=== PATIENT | female | born 1995 | race Two or more races ===

== ENCOUNTER 2022-04-17 17:27 | Inpatient (IN) | payer MEDICAID, OTHER ==
[~2022-04-17] VITALS: Ht 170.2 cm; Wt 118.5 kg
[2022-04-17 18:30] LABS: Albumin 3.8 g/dL (3.4-5.0); BUN/Creatinine Ratio 13.6; Calcium 8.8 mg/dL (8.5-10.1)
[2022-04-17 18:33] LABS: Bilirubin, Total 0.4 mg/dL (0.2-1.0); Total Protein 7.5 g/dL (6.4-8.2)
[2022-04-17 18:34] LABS: Basophils # (auto) 0.2 10 ^3/uL (0-0.2); Basophils % (auto) 2.7 % (0.0-2.0); Eosinophils # (auto) 0.1 10 ^3/uL (0-0.8); Eosinophils % (auto) 1.5 % (0.0-7.0); Hematocrit 44.7 % (36.0-46.0); Hemoglobin 14.8 g/dL (12.2-16.2); Lymphocytes # (auto) 1.3 10 ^3/uL (0.4-5.4); Lymphocytes % (auto) 14.2 % (10.0-50.0); Mean Corpuscular Hemoglobin 28.3 pg (28.0-32.0); Mean Corpuscular Hgb Conc. 33.2 g/dL (32.0-36.0); Mean Corpuscular Volume 85.3 fL (80.0-100.0); Monocytes # (auto) 0.4 10 ^3/uL (0-1.3); Monocytes % (auto) 4.8 % (0.0-12.0); Neutrophils # (auto) 6.9 10 ^3/uL (1.6-8.6); Neutrophils % (auto) 76.8 % (37.0-80.0); Red Blood Cells 5.24 10^6/uL (4.0-5.20); Red Cell Distribution Width 13.5 % (11.8-14.3)
[2022-04-17] MEDS ORDERED: SODIUM CHLORIDE 0.9% 1,000 ML IV ONE ×2 (20:15)
[2022-04-17 21:03] LABS: Urine Bacteria FEW /hpf (None Seen); Urine Blood Negative /uL (Negative); Urine Mucus FEW (None Seen); Urine Specific Gravity 1.015 (1.001-1.035); Urine WBC 3 /hpf (0 - 5)
[2022-04-17 21:15] LABS: Amphetamine Screen, Urine NEGATIVE (NEGATIVE); Barbiturate Scree,Urine NEGATIVE (NEGATIVE); Benzodiazephine Screen, Urine NEGATIVE (NEGATIVE); Cannabinoid Screen, Urine POSITIVE (NEGATIVE); Cocaine Screen, Urine NEGATIVE (NEGATIVE)
[2022-04-17 21:23] LABS: Opiate Scree,Urine NEGATIVE (NEGATIVE); Phencyclidine Screen, Urine NEGATIVE (NEGATIVE)
[2022-04-17] MEDS ORDERED: cefTRIAXone 1GM/50ML D5W 50 ML IV ONE (22:15)
[2022-04-17] MEDS ORDERED: NITROGLYCERIN 0.4 MG SL TAB SL PRN (23:00)
[2022-04-17] MEDS ORDERED: MORPHINE SULFATE INJ 2 MG/ml SYRG IV PRN (23:00)
[2022-04-17] MEDS ORDERED: ACETAMINOPHEN 325 MG TAB PO PRN (23:00)
[2022-04-17] MEDS ORDERED: ONDANSETRON HCL 4 MG/2 ML VIAL IV PRN (23:00)
[2022-04-17] MEDS ORDERED: TEMAZEPAM 15 MG CAP PO PRN (23:00)
[2022-04-18 06:23] LABS: BUN/Creatinine Ratio 10.2; Calcium 8.3 mg/dL (8.5-10.1); Potassium 3.9 mmol/L (3.5-5.1)
[2022-04-18] MEDS ORDERED: cefTRIAXone 1GM/50ML D5W 50 ML IV SCH (09:00)
[2022-04-18] MEDS ORDERED: PANTOPRAZOLE 40 MG TAB PO SCH (10:00)
[2022-04-18] MEDS ORDERED: ENOXAPARIN SOD 100 MG/1 ML SYRINGE SC ONE (12:00)
[2022-04-18] MEDS ORDERED: METOPROLOL SUCCINATE XL 50 MG TAB PO ONE (12:00)
[2022-04-18] MEDS ORDERED: ALBUAER3 IN (21:48)
[2022-04-18 21:54] VITALS: BP 128/69
[2022-04-19 05:08] VITALS: BP 132/75
[2022-04-19 08:00] VITALS: BP 123/72
[2022-04-19 09:00] VITALS: BP 123/72
[2022-04-19] MEDS ORDERED: METO25TA93 PO (09:35)
[2022-04-19] MEDS ORDERED: MAGN241.4 PO (09:35)
[2022-04-19] MEDS ORDERED: MAGNESIUM OXIDE 400 MG TAB PO SCH (10:00)
[2022-04-19] MEDS ORDERED: METOPROLOL SUCCINATE XL 50 MG TAB PO SCH ×2 (10:00)
[2022-04-19 12:48] VITALS: BP 101/66
[2022-04-19 13:00] VITALS: BP 101/60
== END 2022-04-19 13:45 | disposition home or self-care (01) | DRG 207 ==
LOC: ER 17:27 → TELE 23:05 → TELE-CENTR 04-18 20:34
PROVIDERS: ADMIT Nurse Practitioner; ATTEND Internal Medicine Nephrology
DX: R00.2 Palpitations (principal); E03.9 Hypothyroidism, unspecified; E86.0 Dehydration; E66.9 Obesity, unspecified; J45.909 Unspecified asthma, uncomplicated; N39.0 Urinary tract infection, site not specified; Z20.822 Contact with and (suspected) exposure to COVID-19; Z68.41 Body mass index [BMI] 40.0-44.9, adult
CPT/HCPCS: 36415; 71045; 80048; 80053; 80307; 81001; 83605; 83735; 83880; 84443; 84484; 84702; 85025; 85379; 87086; 93005; 93306; 96361; 96365; 96366; 96372; 96375; 99291; G0378; J0696

== ENCOUNTER 2022-09-02 01:21 | Emergency (ER) | payer MEDICAID ==
[~2022-09-02] VITALS: Ht 167.6 cm; Wt 120.5 kg
[~2022-09-02 01:21] MED LIST: ALBUAER3 IN; MAGN241.4 PO; METO25TA93 PO
[2022-09-02 01:59] LABS: Basophils # (auto) 0 10 ^3/uL (0-0.2); Basophils % (auto) 0.3 % (0.0-2.0); Eosinophils # (auto) 0 10 ^3/uL (0-0.8); Hematocrit 46.6 % (36.0-46.0); Hemoglobin 15.5 g/dL (12.2-16.2); Lymphocytes # (auto) 1.3 10 ^3/uL (0.4-5.4); Lymphocytes % (auto) 14.8 % (10.0-50.0); Mean Corpuscular Hemoglobin 29.2 pg (28.0-32.0); Mean Corpuscular Hgb Conc. 33.3 g/dL (32.0-36.0); Mean Corpuscular Volume 87.9 fL (80.0-100.0); Monocytes # (auto) 0.5 10 ^3/uL (0-1.3); Monocytes % (auto) 5.3 % (0.0-12.0); Neutrophils % (auto) 79.6 % (37.0-80.0); Nucleated Red Blood Cells % 0.1 %; Red Blood Cells 5.31 10^6/uL (4.0-5.20); Red Cell Distribution Width 13.4 % (11.8-14.3); White Blood Cell 8.7 10^3/uL (4.4-10.8)
[2022-09-02 02:03] LABS: Urine Bacteria FEW /hpf (None Seen); Urine Blood TRACE /uL (Negative); Urine Hyaline Cast FEW /lpf (0 - 2); Urine Mucus FEW (None Seen); Urine Specific Gravity 1.017 (1.001-1.035); Urine WBC 8 /hpf (0 - 5)
[2022-09-02 02:16] LABS: BUN/Creatinine Ratio 13.8; Calcium 9.1 mg/dL (8.5-10.1); Potassium 3.6 mmol/L (3.5-5.1)
[2022-09-02 02:19] LABS: Bilirubin, Total 0.3 mg/dL (0.2-1.0); Total Protein 7.5 g/dL (6.4-8.2)
[2022-09-02] MEDS ORDERED: PRED20TA2 PO (05:30)
[2022-09-02] MEDS ORDERED: ALBU0.084 IN (05:30)
[2022-09-02] MEDS ORDERED: DOXY-286 PO (05:30)
[2022-09-02] MEDS ORDERED: ALBU0.084 NEB (05:30)
[2022-09-02 06:00] VITALS: BP 108/49
== END 2022-09-02 06:05 | disposition home or self-care (01) ==
LOC: ER 01:21
DX: J18.9 Pneumonia, unspecified organism (principal); J45.901 Unspecified asthma with (acute) exacerbation; R55 Syncope and collapse; R07.89 Other chest pain
CPT/HCPCS: 36415; 71045; 80053; 81001; 83880; 84484; 85025; 93005

== ENCOUNTER 2023-10-22 04:01 | Emergency (ER) | payer MEDICAID ==
[~2023-10-22] VITALS: Ht 167.6 cm; Wt 132.7 kg
[~2023-10-22 04:01] MED LIST changes: +ALBU0.084 IN; -ALBUAER3 IN; +LEVAAER IN; -MAGN241.4 PO
[2023-10-22 07:34] VITALS: BP 122/71; PULSE 101; RESP 22; TEMP 98; O2SAT 100
[2023-10-22] MEDS ORDERED: AUG875T PO (08:21)
[2023-10-22] MEDS ORDERED: BENZ100C97 PO (08:21)
[2023-10-22] MEDS ORDERED: PRED20TA2 PO (08:21)
== END 2023-10-22 08:31 | disposition home or self-care (01) ==
LOC: ER 04:01
DX: J40 Bronchitis, not specified as acute or chronic (principal); I10 Essential (primary) hypertension; F12.10 Cannabis abuse, uncomplicated
CPT/HCPCS: 71045